=== PATIENT | female | born 1985 | race Caucasian/White ===

== ENCOUNTER 2017-04-01 18:05 | Emergency (ER) | payer OTHER ==
[2017-04-01] MEDS ORDERED: Sodium Chloride 0.9% 1,000 ML IV STA (18:22)
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
[2017-04-02 12:00] VITALS: BP 123/71; PULSE 71; RESP 18; TEMP 98.2; O2SAT 99; BMI 25.2
== END 2017-04-01 19:46 | disposition home or self-care (01) ==
LOC: ED 18:05
DX: G43.909 Migraine, unspecified, not intractable, without status migrainosus (principal)
CPT/HCPCS: 96374; 96375; 99285; J1885; J2765; J7040

== ENCOUNTER 2018-08-30 19:35 | Emergency (ER) | payer OTHER ==
[2018-08-30 19:35] VITALS: BMI 24.1
[2018-08-30 19:59] VITALS: RESP 18
[2018-08-30] MEDS ORDERED: DiphenhydrAMINE 50 mg/ml Inj IVP ONE (20:12)
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
[2018-08-30 23:13] VITALS: BP 115/61; PULSE 80; TEMP 98.4; O2SAT 99
== END 2018-08-30 22:05 | disposition home or self-care (01) ==
LOC: ED 19:35
DX: G43.909 Migraine, unspecified, not intractable, without status migrainosus (principal)
CPT/HCPCS: 87070; 87430; 96374; 96375; 99285; J1200; J1885; J2765